=== PATIENT | male | born 1985 | race Caucasian/White ===

== ENCOUNTER 2023-06-02 19:17 | Emergency (ER) | payer BC ==
[~2023-06-02] VITALS: Ht 188 cm; Wt 186.9 kg
[2023-06-02 19:25] VITALS: BP_SYST 150; PULSE 74; RESP 17; TEMP 97; O2SAT 100
== END 2023-06-02 21:00 | disposition home or self-care (01) ==
LOC: SED 19:17
DX: S00.83XA Contusion of other part of head, initial encounter (principal); Z79.899 Other long term (current) drug therapy; W22.8XXA Striking against or struck by other objects, initial encounter; Y93.89 Activity, other specified; Y92.89 Other specified places as the place of occurrence of the external cause; Y99.8 Other external cause status
CPT/HCPCS: 70450-TC; 76376; 99284